=== PATIENT | female | born 1980 | race Caucasian/White ===

== ENCOUNTER 2019-10-22 02:39 | Emergency (ER) | payer BC ==
[~2019-10-22] VITALS: Ht 165.1 cm; Wt 54.4 kg
[2019-10-22 02:55] VITALS: BP_SYST 133
--- NOTE | 2019-10-22 03:25 | NUR ---
Pt did not want to wait
--- NOTE | 2019-10-22 03:25 | NUR ---
Patient left without being seen. No further treatment provided. ER MD aware
== END 2019-10-22 03:25 | disposition left against medical advice (07) ==
LOC: SED 02:39
DX: R06.02 Shortness of breath (principal); R11.10 Vomiting, unspecified; Z53.21 Procedure and treatment not carried out due to patient leaving prior to being seen by health care provider